=== PATIENT | female | born 1950 | race Caucasian/White ===

== ENCOUNTER 2022-03-12 19:50 | Emergency (ER) | payer MEDICARE ==
[2022-03-12] MEDS ORDERED: fentaNYL 100 MCG/2 ML SDV ONE (20:15)
== END 2022-03-12 21:09 | disposition home or self-care (01) ==
LOC: JP.ED 19:50
DX: S52.501A Unspecified fracture of the lower end of right radius, initial encounter for closed fracture (principal); W01.0XXA Fall on same level from slipping, tripping and stumbling without subsequent striking against object, initial encounter
CPT/HCPCS: 73110; 99283; J3010

== ENCOUNTER 2023-03-18 17:37 | Emergency (ER) | payer MEDICARE ==
[2023-03-18 18:57] LABS: INFLUENZA A NAA NEGATIVE (NEGATIVE); INFLUENZA B NAA NEGATIVE (NEGATIVE); RESPIRATORY SYNCYTIAL VIR NAA NEGATIVE (NEGATIVE)
[2023-03-18 18:58] LABS: CORONAVIRUS COVID-19 NAA POSITIVE (NEGATIVE)
[2023-03-18] MEDS ORDERED: Diltiazem 25 MG/5 ML SDV IVPUSH ONE (19:10)
[2023-03-18] MEDS ORDERED: Sodium Chloride 0.9% 10 ML Syringe FLUSH PRN (19:10)
[2023-03-18 19:30] LABS: BASOPHILS PERCENT AUTO 0.1 % (0.1-1.3); EOSINOPHILS ABSOLUTE AUTO 0.04 K/uL (0.00-0.40); EOSINOPHILS PERCENT AUTO 0.4 % (0.0-5.4); HEMATOCRIT 37.9 % (34.3-46.0); HEMOGLOBIN 12.7 g/dL (11.2-15.5); IMMATURE GRAN ABSOLUTE AUTO 0.04 K/uL (0.00-0.23); IMMATURE GRAN PERCENT AUTO 0.4 % (0.0-0.7); LYMPHOCYTES ABSOLUTE AUTO 1.53 K/uL (0.8-3.3); LYMPHOCYTES PERCENT AUTO 14.5 % (11.4-47.7); MEAN CORPUSCULAR HEMOGLOBIN 33.2 pg (31.6-35.5); MEAN CORPUSCULAR HGB CONC 33.5 g/dL (31.6-35.5); MEAN CORPUSCULAR VOLUME 99.2 fL (81.4-99.0); MONOCYTES ABSOLUTE AUTO 0.56 K/uL (0.20-0.90); MONOCYTES PERCENT AUTO 5.3 % (3.3-12.6); NEUTROPHILS ABSOLUTE AUTO 8.34 K/uL (1.0-7.6); NEUTROPHILS PERCENT AUTO 79.3 % (40.0-78.1); PLATELET COUNT,PLT 299 K/uL (130-375); RED BLOOD CELL COUNT 3.82 M/uL (3.77-5.24); WHITE BLOOD CELL COUNT,WBC 10.5 K/uL (3.2-11.0)
[2023-03-18 19:31] LABS: BASOPHILS ABSOLUTE AUTO 0.01 K/uL (0.00-0.10)
[2023-03-18 20:00] LABS: A/G RATIO 0.7 (1.2-2.2); ALANINE AMINOTRANSFERASE,ALT 22 U/L (12-78); ALBUMIN 3.7 g/dL (3.4-5.0); ALKALINE PHOSPHATASE 38 U/L (46-116); ASPARTATE AMNIOTRANSFERASE,AST 31 U/L (15-37); BILIRUBIN TOTAL 0.4 mg/dL (0.2-1.0); BLOOD UREA NITROGEN,BUN 17 mg/dL (7-18); CALCIUM 9.7 mg/dL (8.5-10.1); CARBON DIOXIDE,CO2 28 mmol/L (21-32); CHLORIDE,CL 98 mmol/L (100-108); CREATININE 0.9 mg/dL (0.6-1.0); EST CRCL DRUG DOSING (CG) 42.64 mL/min; ESTIMATED GFR 68 mL/min (>60); GLUCOSE RANDOM 100 mg/dL (74-106); POTASSIUM,K 3.5 mmol/L (3.6-5.2); PROTEIN TOTAL,TP 8.7 g/dL (6.4-8.2); SODIUM,NA 137 mmol/L (140-148); TROPONIN I HIGH SENSITIVITY 9.1 pg/mL (<=60.3); TSH ULTRASENSITIVE 2.319 uIU/mL (0.358-3.740)
[2023-03-18] MEDS ORDERED: Sodium Chloride 0.9% 1,000 ML IV SCH (20:00)
[2023-03-18 20:01] LABS: ANION GAP 14.5 mmol/L (5.0-14.0)
== END 2023-03-18 21:41 | disposition home or self-care (01) ==
LOC: JP.ED 17:37
DX: U07.1 COVID-19 (principal); E86.0 Dehydration; J45.21 Mild intermittent asthma with (acute) exacerbation; J30.1 Allergic rhinitis due to pollen; I48.0 Paroxysmal atrial fibrillation; Z88.0 Allergy status to penicillin; Z88.1 Allergy status to other antibiotic agents; Z88.2 Allergy status to sulfonamides; Z88.5 Allergy status to narcotic agent; Z88.6 Allergy status to analgesic agent; Z88.7 Allergy status to serum and vaccine; Z88.8 Allergy status to other drugs, medicaments and biological substances; Z91.040 Latex allergy status; Z91.048 Other nonmedicinal substance allergy status; Z91.041 Radiographic dye allergy status
CPT/HCPCS: 0241U; 36415; 80053; 84443; 84484; 85025; 93005; 96361; 96374; 99285; J3490; J7030; 93010; 99284

== ENCOUNTER 2025-03-25 20:50 | Emergency (ER) | payer MEDICARE ==
[2025-03-25] MEDS ORDERED: Naloxone 0.4 MG/ML SDV IVPUSH PRN (21:28)
[2025-03-25 22:01] LABS: BASOPHILS PERCENT AUTO 0.1 % (0.1-1.3); EOSINOPHILS PERCENT AUTO 0.2 % (0.0-5.4); IMMATURE GRAN ABSOLUTE AUTO 0.04 K/uL (0.00-0.23); IMMATURE GRAN PERCENT AUTO 0.4 % (0.0-0.7); LYMPHOCYTES ABSOLUTE AUTO 0.66 K/uL (0.8-3.3); LYMPHOCYTES PERCENT AUTO 7.3 % (11.4-47.7); MONOCYTES ABSOLUTE AUTO 0.35 K/uL (0.20-0.90); MONOCYTES PERCENT AUTO 3.9 % (3.3-12.6); NEUTROPHILS ABSOLUTE AUTO 7.94 K/uL (1.0-7.6); NEUTROPHILS PERCENT AUTO 88.1 % (40.0-78.1); PLATELET COUNT,PLT 180 K/uL (130-375); RED BLOOD CELL COUNT 3.58 M/uL (3.77-5.24); WHITE BLOOD CELL COUNT,WBC 9.0 K/uL (3.2-11.0)
[2025-03-25 22:03] LABS: BASOPHILS ABSOLUTE AUTO 0.01 K/uL (0.00-0.10); EOSINOPHILS ABSOLUTE AUTO 0.02 K/uL (0.00-0.40)
[2025-03-25 22:18] LABS: INR 1.0
[2025-03-25 22:22] LABS: A/G RATIO 0.9 (1.2-2.2); ALANINE AMINOTRANSFERASE,ALT 41 U/L (12-78); ASPARTATE AMNIOTRANSFERASE,AST 34 U/L (15-37); BILIRUBIN TOTAL 0.3 mg/dL (0.2-1.0); BLOOD UREA NITROGEN,BUN 20 mg/dL (7-18); CARBON DIOXIDE,CO2 30 mmol/L (21-32); CHLORIDE,CL 103 mmol/L (100-108); CREATININE 0.8 mg/dL (0.6-1.0); EST CRCL DRUG DOSING (CG) 46.55 mL/min; ESTIMATED GFR 77 mL/min (>60); GLUCOSE RANDOM 123 mg/dL (74-106); POTASSIUM,K 3.3 mmol/L (3.6-5.2); PROTEIN TOTAL,TP 7.5 g/dL (6.4-8.2); SODIUM,NA 139 mmol/L (140-148)
[2025-03-25] MEDS: fentaNYL 50 MCG/ML SDV IVPUSH ONE (22:38)
[2025-03-25] MEDS: Ondansetron 4 MG/2 ML SDV IVPUSH ONE (23:00)
[2025-03-26] MEDS: Potassium Chloride 20 MEQ Tab.ER PO ONE (01:30)
[2025-03-26] MEDS: fentaNYL 50 MCG/ML SDV IVPUSH ONE ×3 (01:32→15:36)
[2025-03-26] MEDS ORDERED: Naloxone 0.4 MG/ML SDV IVPUSH PRN (08:16)
[2025-03-26] MEDS: Ondansetron 4 MG/2 ML SDV IVPUSH PRN (08:26)
[2025-03-26] MEDS: Potassium Chloride 20 MEQ Tab.ER PO SCH (08:29)
[2025-03-26] MEDS: Acetaminophen/oxyCODONE 325-5 MG Tab PO PRN (08:30)
== END 2025-03-26 16:20 ==
LOC: EDBD 20:50 → JP.ED 20:50 → MERGE 20:50 → JP.ED 03-26 16:20
DX: S72.031A Displaced midcervical fracture of right femur, initial encounter for closed fracture (principal); E87.6 Hypokalemia; I48.91 Unspecified atrial fibrillation; J45.909 Unspecified asthma, uncomplicated; E03.9 Hypothyroidism, unspecified; Z90.710 Acquired absence of both cervix and uterus; Z88.5 Allergy status to narcotic agent; Z88.8 Allergy status to other drugs, medicaments and biological substances; Z88.0 Allergy status to penicillin; Z91.041 Radiographic dye allergy status; Z88.7 Allergy status to serum and vaccine; Z88.1 Allergy status to other antibiotic agents; Z79.01 Long term (current) use of anticoagulants; Z79.890 Hormone replacement therapy; Z79.899 Other long term (current) drug therapy; W01.0XXA Fall on same level from slipping, tripping and stumbling without subsequent striking against object, initial encounter
CPT/HCPCS: 36415; 72192; 76377; 80053; 85025; 85610; 96374; 96375; 99285; A9270; J2405; J3010